=== PATIENT | female | born 1970 | race Caucasian/White ===

== ENCOUNTER 2017-11-24 02:54 | Emergency (ER) | payer MEDICARE ==
[2014-01-05 18:26] VITALS: BMI 23.2
[~2017-11-24 02:54] MED LIST: AMBIEN10 MG PO; AZULFIDINE500 MG PO; DILAUDID4 MG PO; IMODIUM A-D2 MG PO; K-DUR20 MEQ PO; KEFLEX500 MG PO; KLONOPIN1 MG PO; LEVSIN/ANASP0.125 MG PO; NEURONTIN 300300 MG PO; NORCO 10/325 TA1 TA1 PO; PEPCID20 MG PO; PHENERGAN25 M1 PO; PLAQUENIL200 MG PO; PREDNISONE1 MG PO; PROTONIX40 MG PO; TOBRADEX EYE DRO5 ML RIGHT EYE; TOPAMAX200 MG PO; ZOFRAN8 MG PO; ZOLOFT100 MG PO
[2017-11-24 03:39] LABS: BASOPHILS 0.3 % (0-2); EOSINOPHILS 6.2 % (0-7); HEMATOCRIT 32.4 % (36.0-48.0); HEMOGLOBIN 11.1 g/dL (12-16); LYMPHOCYTES 65.7 % (15-50); MCH 35.1 pg (26.0-34.0); MCHC 34.3 g/dL (31.0-37.0); MCV 102.5 fL (80.0-100.0); MEAN PLATELET VOLUME 9.9 fL (7.4-10.4); MONOCYTES 7.7 % (2-11); NEUTROPHILS 20.1 % (40-80); RBC 3.16 10x6/uL (4.00-5.40); RDW 12.6 % (11.5-14.5); WBC 3.9 10x3/uL (4.8-10.8)
[2017-11-24 03:40] LABS: PLATELET COUNT 119 10x3/uL (130-400)
[2017-11-24 03:53] LABS: ALKALINE PHOSPHATASE 67 U/L (46-116); ALT (SGPT) 28 U/L (10-68); BILIRUBIN - TOTAL 0.23 mg/dL (0.2-1.3); CALC OSMOLALITY 279 mosm/kg (275-300); CALCIUM 7.2 mg/dL (8.5-10.1); CARBON DIOXIDE 21.3 mmol/L (21.0-32.0); CHLORIDE - SERUM 108 mmol/L (98-107); CREATININE - SERUM 0.8 mg/dL (0.6-1.3); GLUCOSE 83 mg/dL (74-106); PROTEIN - SERUM 6.2 g/dL (6.4-8.2); SODIUM 142 mmol/L (136-145); UREA NITROGEN 8 mg/dL (7-18); eGFR NON AFRICAN AMERICAN 81 mL/min (90-120)
[2017-11-24 03:57] LABS: CREATINE KINASE 27 UL (21-215); MAGNESIUM - SERUM 1.5 mg/dL (1.8-2.4)
[2017-11-24 04:03] LABS: APPEARANCE HAZY (CLEAR); BILIRUBIN NEGATIVE (NEGATIVE); COLOR YELLOW (YELLOW); GLUCOSE NEGATIVE (NEGATIVE); KETONE NEGATIVE (NEGATIVE); NITRITE NEGATIVE (NEGATIVE); PROTEIN TRACE mg/dL (NEGATIVE); SPECIFIC GRAVITY 1.015 (1.005-1.020); UROBILINOGEN NORMAL (NORMAL)
[2017-11-24 04:04] LABS: BACTERIA NONE SEEN /hpf (NONE SEEN); EPITHELIAL CELLS 0-5 /hpf (0-5); RED CELLS - URINE 0-5 /hpf (0-5)
[2017-11-24 04:05] LABS: TROPONIN-I < 0.017 ng/mL (0.000-0.060)
[2017-11-24 04:39] LABS: UDS - AMPHET NEGATIVE QUAL (NEGATIVE); UDS - BARB NEGATIVE QUAL (NEGATIVE); UDS - BENZO POSITIVE QUAL (NEGATIVE); UDS - COCAINE NEGATIVE QUAL (NEGATIVE); UDS - OPIATE NEGATIVE QUAL (NEGATIVE); UDS - PCP NEGATIVE QUAL (NEGATIVE); UDS - THC POSITIVE QUAL (NEGATIVE)
== END 2017-11-24 05:07 | disposition home or self-care (01) ==
LOC: D.ER 02:54
PROVIDERS: Emergency Medicine
DX: I95.9 Hypotension, unspecified (principal); R42 Dizziness and giddiness; E83.42 Hypomagnesemia; D64.9 Anemia, unspecified; E87.6 Hypokalemia; I10 Essential (primary) hypertension; R00.1 Bradycardia, unspecified

== ENCOUNTER 2017-12-26 17:52 | Emergency (ER) | payer MEDICARE ==
[2014-01-05 18:26] VITALS: BMI 23.2
[2017-12-26 19:09] LABS: HEMATOCRIT 40.8 % (36.0-48.0); HEMOGLOBIN 14.1 g/dL (12-16); MCH 35.3 pg (26.0-34.0); MCHC 34.6 g/dL (31.0-37.0); MEAN PLATELET VOLUME 10.3 fL (7.4-10.4); PLATELET COUNT 146 10x3/uL (130-400); RDW 12.9 % (11.5-14.5); WBC 3.8 10x3/uL (4.8-10.8)
[2017-12-26 19:12] LABS: APPEARANCE CLEAR (CLEAR); BILIRUBIN NEGATIVE (NEGATIVE); COLOR YELLOW (YELLOW); GLUCOSE NEGATIVE (NEGATIVE); KETONE NEGATIVE (NEGATIVE); NITRITE NEGATIVE (NEGATIVE); PROTEIN NEGATIVE (NEGATIVE); UROBILINOGEN NORMAL (NORMAL)
[2017-12-26 19:15] LABS: UDS - AMPHET NEGATIVE QUAL (NEGATIVE); UDS - BARB NEGATIVE QUAL (NEGATIVE); UDS - BENZO NEGATIVE QUAL (NEGATIVE); UDS - COCAINE NEGATIVE QUAL (NEGATIVE); UDS - OPIATE NEGATIVE QUAL (NEGATIVE); UDS - PCP NEGATIVE QUAL (NEGATIVE); UDS - THC POSITIVE QUAL (NEGATIVE)
[2017-12-26 19:40] LABS: ALBUMIN 3.6 g/dL (3.4-5.0); ALKALINE PHOSPHATASE 81 U/L (46-116); ALT (SGPT) 26 U/L (10-68); CALC OSMOLALITY 275 mosm/kg (275-300); CALCIUM 8.8 mg/dL (8.5-10.1); CARBON DIOXIDE 21.6 mmol/L (21.0-32.0); CHLORIDE - SERUM 107 mmol/L (98-107); CREATINE KINASE 42 UL (21-215); CREATININE - SERUM 0.7 mg/dL (0.6-1.3); EOSINOPHILS 3 % (0-7); GLUCOSE 81 mg/dL (74-106); LYMPHOCYTES 60 % (15-50); MAGNESIUM - SERUM 2.2 mg/dL (1.8-2.4); NEUTROPHILS 37 % (40-80); PLATELET ESTIMATE NORMAL; POTASSIUM - SERUM 3.7 mmol/L (3.5-5.1); PROTEIN - SERUM 7.4 g/dL (6.4-8.2); SODIUM 139 mmol/L (136-145); UREA NITROGEN 9 mg/dL (7-18); eGFR NON AFRICAN AMERICAN > 90 mL/min (90-120)
== END 2017-12-26 20:17 | disposition home or self-care (01) ==
LOC: D.ER 17:52
PROVIDERS: Family Medicine
DX: J11.1 Influenza due to unidentified influenza virus with other respiratory manifestations (principal); I10 Essential (primary) hypertension; K50.90 Crohn's disease, unspecified, without complications; M35.00 Sjogren syndrome, unspecified; I73.00 Raynaud's syndrome without gangrene; M79.1 Myalgia; R53.83 Other fatigue; R11.2 Nausea with vomiting, unspecified

== ENCOUNTER → 2018-01-23 13:47 | Outpatient (CLI) | payer MEDICARE ==
[2014-01-05 18:26] VITALS: BMI 23.2
[2018-01-23 14:47] LABS: APPEARANCE CLEAR (CLEAR); BILIRUBIN NEGATIVE (NEGATIVE); COLOR YELLOW (YELLOW); GLUCOSE NEGATIVE (NEGATIVE); KETONE NEGATIVE (NEGATIVE); NITRITE NEGATIVE (NEGATIVE); PROTEIN NEGATIVE (NEGATIVE); UROBILINOGEN NORMAL (NORMAL)
[2018-01-23 16:19] LABS: ERYTHROCYTE SEDIMENTATION RATE 40 mm/hr (0-20)
[2018-01-27 14:23] LABS: EBV DNA QUANT PCR Negative (Negative)
[2018-01-28 11:23] LABS: HISTOPLASMA GAL MANNAN AG SER <0.5 (<0.5 ng/mL)
[2018-01-29 11:19] LABS: F. TULARENSIS - IGG Negative (()); F. TULARENSIS - IGM Negative (())
== END | disposition home or self-care (01) ==
LOC: D.LABREF 13:47
PROVIDERS: Student in an Organized Health Care Education/Training Program
DX: R50.9 Fever, unspecified (principal)